=== PATIENT | male | born 1985 | race Two or more races ===

== ENCOUNTER 2019-10-26 18:56 | Emergency (ER) | payer SELFPAY ==
[~2019-10-26] VITALS: Ht 170.2 cm; Wt 80.0 kg
[2019-10-26 19:30] VITALS: BP 138/92
[2019-10-26] MEDS ORDERED: ONDA4TAB12 PO (20:47)
[2019-10-26] MEDS ORDERED: DICY10CA3 PO (20:47)
--- NOTE | 2019-10-26 20:48 | PHYS DOC ---
Past Medical History Past Medical History: No Pertinent History (KUSH RAHMAN APRN) Past Surgical History: No Surgical History (KUSH RAHMAN APRN) Smoking Status: Never Smoker Alcohol Use: None (KUSH RAHMAN APRN) Attending Signature I have participated in the care of this patient and I have reviewed and agree with all pertinent clinical information above including history, exam, and recommendations. (RAY DIALLO MD) Adult General Chief Complaint Chief Complaint: FLU SYMPTOM [facility] HPI Patient is a 34 year old male who presents with fever, loss of appetite, body aches, nausea, vomiting, diarrhea, runny nose, cough that started 5 days ago.. Patient has been able to drink water at home. Patient has been trying to eat solid foods and has been having difficulty with his stomach being upset. Complete ROS were reviewed and found to be within normal limits, except as documented in the HPI (KUSH RAHMAN APRN) Physical Exam Physical Exam Constitutional: Well developed, well nourished, no acute distress, non-toxic appearance. [] HENT: Normocephalic, atraumatic, bilateral external ears normal, oropharynx moist, no oral exudates, nose normal. [] Eyes: PERRLA, EOMI, conjunctiva normal, no discharge. [] Neck: Normal range of motion, no tenderness, supple, no stridor. [] Cardiovascular:Heart rate regular rhythm, no murmur [] Lungs & Thorax: Bilateral breath sounds clear to auscultation [] Abdomen: Bowel sounds normal, soft, no tenderness, no masses, no pulsatile masses. [] Skin: Warm, dry, no erythema, no rash. [] Neurologic: Alert and oriented X 3, normal motor function, normal sensory function, no focal deficits noted. [] Psychologic: Affect normal, judgement normal, mood normal. [] (KUSH RAHMAN APRN) Current Patient Data Vital Signs Vital Signs Date Time Temp Pulse Resp B/P (MAP) Pulse Ox O2 Delivery O2 Flow Rate FiO2 10/26/19 19:30 99.5 83 18 138/92 (107) 95 Room Air 99.5 (RAY DIALLO MD) EKG EKG [] (KUSH RAHMAN APRN) Radiology/Procedures Radiology/Procedures [] (KUSH RAHMAN APRN) Course & Med Decision Making Course & Med Decision Making Pertinent Labs and Imaging studies reviewed. (See chart for details) The patient appears to have the Flu clinically. Discussed with patient the importance of drinking plenty of fluids. I also discussed the importance of rest. It was discussed with the patient that she is contagious and to stay away from others until it has been a week since the start of her symptoms. Discussed with the patient that she can take Zyrtec per label instructions for runny nose. Also discussed the proper control of fever by rotating Tylenol and Ibuprofen at home. Will give Decadron and prescribe Zofran and Bentyl. (KUSH RAHMAN APRN) Dragon Disclaimer Dragon Disclaimer This electronic medical record was generated, in whole or in part, using a voice recognition dictation system. (KUSH RAHMAN APRN) Departure Departure Impression: Primary Impression: Acute viral syndrome Disposition: HOME, SELF-CARE Condition: STABLE Referrals: NO PCP (PCP) Patient Instructions: Viral Syndrome Additional Instructions: Thank you for visiting [facility]. We appreciate you trusting us with your care. If any additional problems come up don't hesitate to return to visit us. Please follow up with your primary care provider so they can plan additional care if needed and know about the problem that you had. If symptoms worsen come back to the Emergency Department. Any concerning symptoms that start such as chest pain, shortness of air, weakness or numbness on one side of the body, running high fevers or any other concerning symptoms return to the ER. Please fill your medications at any pharmacy and follow the prescription instructions. Please drink plenty of fluids. If unable to keep fluids down please return to ER. Please get Tylenol and Ibuprofen over the counter. Give each medication every 6 hours as directed by the medication labels. In order to utilize the peak of the medications stagger the medications to where the child is getting one of the medications every 3 hours. For example if you give Ibuprofen at 3 PM, you then give Tylenol at 6 PM and Ibuprofen again at 9 PM, and then Tylenol at midnight. Please get Zyrtec over the counter and take per label instructions for runny nose. Scripts Ondansetron (ONDANSETRON ODT) 4 Mg Tab.rapdis 1 TAB PO PRN Q6-8HRS PRN for NAUSEA, #20 TAB Prov: KUSH RAHMAN APRN 10/26/19 Dicyclomine Hcl (DICYCLOMINE HCL) 10 Mg Capsule 1 CAP PO PRN Q6HRS PRN for PAIN, #20 CAP 0 Refills Prov: KUSH RAHMAN APRN 10/26/19 KUSH RAHMAN APRN Oct 26, 2019 20:48 RAY DIALLO MD Oct 27, 2019 02:17
== END 2019-10-26 21:00 | disposition home or self-care (01) ==
LOC: ER 18:56
DX: A08.4 Viral intestinal infection, unspecified (principal); R11.2 Nausea with vomiting, unspecified; R50.9 Fever, unspecified; R05 Cough; R63.0 Anorexia
CPT/HCPCS: 99283